=== PATIENT | male | born 1985 | race Hispanic/Latino ===

== ENCOUNTER 2018-02-11 14:32 | Emergency (ER) | payer OTHER ==
[~2018-02-11] VITALS: Ht 182.9 cm; Wt 102.1 kg
[2018-02-11] MEDS ORDERED: ONDANSETRON HCL INJ 2 MG/ML VIAL IV STA (14:44)
[2018-02-11] MEDS ORDERED: SODIUM CHLORIDE 0.9% 1000ML 1,000 ML IV SCH ×2 (14:45→18:00)
[2018-02-11] MEDS ORDERED: KETOROLAC TROMETHAMINE 30 MG/ML VIAL IV STA (14:50)
[2018-02-11 17:59] VITALS: BP 118/80
== END 2018-02-11 18:03 | disposition home or self-care (01) ==
LOC: FSED 14:32
DX: R10.84 Generalized abdominal pain (principal); R11.0 Nausea; R51 Headache
CPT/HCPCS: 80048; 80307; 81003; 85025; 99283; J1885; J2405; J7030